=== PATIENT | male | born 1965 | race Two or more races ===

== ENCOUNTER 2025-08-01 11:52 | Inpatient (IN) | payer MEDICAID, OTHER ==
[~2025-08-01] VITALS: Ht 190.5 cm; Wt 163.3 kg
--- NOTE | 2025-08-01 12:18 | ED.PDOC ---
History of Present Illness HPI Comments This is a 60-year-old male who comes in with chief complaint of shortness for breath off and on for the past one month. The patient states that he has has a history of this five years ago. He denies any chest pain, nausea or vomiting. There has been no fever or chills. The patient also notes that he has been having some bilateral leg swelling and the shortness for breath seems to increase with ambulation. The patient has been other complaints at this time. Currently he states that he takes no medications for anything. Chief Complaint: Shortness of Breath Time Seen by MD: 12:01 Reviewed Notes: Nurses Notes, Medications, Allergies (No allergies to medications) Allergies: Coded Allergies: NO KNOWN ALLERGIES (Unverified , 08/01/25) Information Source: Patient Mode of Arrival: Ambulatory Severity: Moderate Timing: Weeks Duration: Since onset Prehospital treatment: None Associated signs and symptoms Exertional shortness for breath with the leg swelling Past Medical History PAST MEDICAL HISTORY: Denies Surgical History: Denies all surgeries Family History Family History: No family hx of Cancer, No family hx of DM, No family hx of Heart merritt Social History Smoker: Non-Smoker Alcohol: Denies ETOH Use Drugs: Denies Drug Use Lives In: Home Constitutional: denies: chills, diaphoresis, fatigue, fever, malaise, sweats, weakness, others EENTM: denies: blurred vision, double vision, ear bleeding, ear discharge, ear drainage, ear pain, ear ringing, eye pain, eye redness, hearing loss, mouth pain, mouth swelling, nasal discharge, nose bleeding, nose congestion, nose pain, photophobia, tearing, throat pain, throat swelling, voice changes, others Respiratory: reports: shortness of breath; denies: cough, hemoptysis, orthopnea, SOB at rest, SOB with excertion, stridor, wheezing, others Cardiovascular: denies: chest pain, dizzy spells, diaphoresis, Dyspnea on exertion, edema, irregular heart beat, left arm pain, lightheadedness, palpitations, PND, syncope, others Gastrointestinal: denies: abdomen distended, abdominal pain, blood streaked bowels, constipated, diarrhea, dysphagia, difficulty swallowing, hematemesis, melena, nausea, poor appetite, poor fluid intake, rectal bleeding, rectal pain, vomiting, others Genitourinary: denies: burning, dysuria, flank pain, frequency, hematuria, incontinence, penile discharge, penile sore, pain, testicle pain, testicle swelling, urgency, others Neurological: denies: dizziness, fainting, headache, left sided numbness, left sided weakness, numbness, paresthesia, pre-existing deficit, right sided numbness, right sided weakness, seizure, speech problems, tingling, tremors, weakness, others Musculoskeletal: reports: others (Bilateral leg swelling); denies: back pain, gout, joint pain, joint swelling, muscle pain, muscle stiffness, neck pain Integumetry: denies: bruises, change in color, change in hair/nails, dryness, laceration, lesions, lumps, rash, wounds, others Allergic/Immunocompromised: denies: Difficulty Healing, Frequent Infections, Hives, Itching, others Hematologic/Lymphatic: denies: anemia, blood clots, easy bleeding, easy bruising, swollen glands, others Endocrine: denies: excessive hunger, excessive sweating, excessive thirst, excessive urination, flushing, intolerance to cold, intolerance to heat, unexplained weight gain, unexplained weight loss, others Psychiatric: denies: anxiety, bipolar disorder, depression, hopeless, panic disorder, schizophrenia, sleepless, suicidal, others Physical Exam General Appearance: Moderate Distress, Obese HEENT: Normal ENT Inspection, Pharynx Normal, TMs Normal Neck: Full Range of Motion, Non-Tender, Normal, Normal Inspection Respiratory: Chest Non-Tender, No Accessory Muscle Use, Rales, Respiratory Distress Cardiovascular: No Edema, No JVD, No Murmur, No Gallop, Tachycardia Breast Exam: Deferred Gastrointestinal: No Organomegaly, Non Tender, No Pulsatile Mass, Normal Bowel Sounds, Soft Genitalia: Deferred Pelvic: Deferred Rectal: Deferred Extremities: No calf tenderness, Normal capillary refill, Pedal edema Musculoskeletal : Apperance: Normal Neurologic: Alert, 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 Was a procedure done?: No EKG EKG : Pulse Rate (adult): 118 [place]: Normal Cardiac Rhythm: Aflutter ST: Nonsp Differential Dx Considerations may include: ACS, IN, acute on chronic diastolic heart failure, asthma X-Ray, Labs, Meds, VS Vital Signs Date Time Temp Pulse Resp B/P (MAP) Pulse Ox O2 Delivery O2 Flow Rate FiO2 08/01/25 16:06 165/101 08/01/25 16:06 52 16 165/101 (122) 98 08/01/25 14:31 159/106 08/01/25 14:13 96 20 96 Room Air 08/01/25 14:13 98.0 96 20 159/108 (125) 96 98.0 08/01/25 12:18 118 08/01/25 12:02 118 08/01/25 11:53 97.7 108 15 156/106 95 97.7 Lab Test 08/01/25 17:16 08/01/25 15:31 08/01/25 14:03 08/01/25 13:16 Range/Units Troponin I High Sensitivity 26 21 20 </=54 ng/L Urine Color Light-yellow Yellow Urine Clarity Clear Clear Urine pH 6.0 5.0-9.0 Urine Specific [place] 1.010 1.001-1.035 Urine Protein Negative Negative Urine Ketones Negative Negative Urine Blood Negative Negative /uL Urine Nitrite Negative Negative Urine Bilirubin Negative Negative Urine Urobilinogen Normal Negative mg/dL Urine Leukocyte Esterase Negative Negative /uL Urine RBC 1 0 - 3 /hpf Urine Microscopic WBC < 1 0-3 /HPF Urine Squamous Epithelial Cells Few <5 /hpf Urine Bacteria None seen None Seen /hpf Urine Glucose Normal Normal mg/dL White Blood Count 7.2 4.4-10.8 10^3/uL Red Blood Count 5.03 4.5-5.90 10^6/uL Hemoglobin 15.1 13.5-17.5 g/dL Hematocrit 46.2 41.0-53.0 % Mean Corpuscular Volume 91.9 80.0-100.0 fL Mean Corpuscular Hemoglobin 30.0 28.0-32.0 pg Mean Corpuscular Hemoglobin Concent 32.6 32.0-36.0 g/dL Red Cell Distribution Width 15.0 H 11.8-14.3 % Platelet Count 138 L 140-450 10^3/uL Mean Platelet Volume 8.3 6.9-10.8 fL Neutrophils (%) (Auto) 65.3 37.0-80.0 % Lymphocytes (%) (Auto) 23.6 10.0-50.0 % Monocytes (%) (Auto) 7.8 0.0-12.0 % Eosinophils (%) (Auto) 2.5 0.0-7.0 % Basophils (%) (Auto) 0.8 0.0-2.0 % Neutrophils # (Auto) 4.7 1.6-8.6 10 ^3/uL Lymphocytes # (Auto) 1.7 0.4-5.4 10 ^3/uL Monocytes # (Auto) 0.6 0-1.3 10 ^3/uL Eosinophils # (Auto) 0.2 0-0.8 10 ^3/uL Basophils # (Auto) 0.1 0-0.2 10 ^3/uL Nucleated Red Blood Cells 0.0 % Sodium Level 144 136-145 mmol/L Potassium Level 4.3 3.5-5.1 mmol/L Chloride Level 106 98-107 mmol/L Carbon Dioxide Level 28 20-31 mmol/L Anion Gap 10 5-15 Blood Urea Nitrogen 20 9-23 mg/dL Creatinine 1.23 0.700-1.30 mg/dL Glomerular Filtration Rate Calc 66 >90 mL/min BUN/Creatinine Ratio 16.3 10.0-20.0 Serum Glucose 89 74-106 mg/dL Calcium Level 9.2 8.7-10.4 mg/dL B-Type Natriuretic Peptide 135.30 0-100 pg/mL Current Medications Medications (Trade) Dose Ordered Sig/Bautista Route Start Time Stop Time Status Last Admin Furosemide (Lasix Injection) 40 mg ONCE ONCE IV 08/01/25 12:15 08/01/25 12:16 DC 08/01/25 14:31 Hydralazine HCl (Apresoline Injection) 10 mg ONCE ONCE IV 08/01/25 12:30 08/01/25 12:31 DC 08/01/25 16:06 Acetaminophen (Tylenol Tablet) 650 mg ONCE ONCE PO 08/01/25 14:30 08/01/25 14:31 DC 08/01/25 14:28 IMPRESSION: Mild pulmonary vascular congestion. Hep-Lock has been established. The patient was given Lasix 40 mg IV push The patient is significantly hypertensive and will be given hydralazine 10 mg IV push The patient is being admitted with a diagnosis of acute on chronic diastolic heart failure The patient is also having accelerated hypertension The BNP is within normal range The chemistry panel is within normal range The patient's CBC is within normal range. The urine test is negative The troponin level is negative x2 Images Reviewed?: Images reviewed and evaluated by me Time of 1ST Reevaluation: 12:17 Reevaluation 1ST: Unchanged Patient Education/Counseling: Diagnosis, Treatment, Prognosis Family Education/Counseling: No Family Present SEPSIS Sepsis Screen Date sepsis recognized/suspect: Aug 01, 2025 Time Sepsis recognized/suspect: 1154 Recent Procedure: No On Antibiotic Therapy: No Respiratory Rate >20: No Heart Rate >90: Yes Temp<36 C (96.8 F) or >38.3 C: No SBP <90 or MAP <65 mmHG: No New Acute Mental Status Change: No Is the patient on CPAP, BIPAP,: No Physician Orders Heplock Iv (08/01/25 12:12) Pulse Oximetry (08/01/25 12:12) Hr Systems Analyst (08/01/25 12:12) Blood Pressure (08/01/25 12:12) Chest Two Views Routine (08/01/25 12:12) Electrocardigram (08/01/25 15:12) Vital Signs Date Time Temp Pulse Resp B/P (MAP) Pulse Ox O2 Delivery O2 Flow Rate FiO2 08/01/25 16:06 165/101 08/01/25 16:06 52 16 165/101 (122) 98 08/01/25 14:31 159/106 08/01/25 14:13 96 20 96 Room Air 08/01/25 14:13 98.0 96 20 159/108 (125) 96 98.0 08/01/25 12:18 118 08/01/25 12:02 118 08/01/25 11:53 97.7 108 15 156/106 95 97.7 Laboratory Tests Test 08/01/25 13:16 White Blood Count 7.2 10^3/uL (4.4-10.8) Medications Medications Dose Ordered Sig/Bautista Route Start Time Stop Time Status Last Admin Dose Admin Acetaminophen 650 mg ONCE ONCE PO 08/01/25 14:30 08/01/25 14:31 DC 08/01/25 14:28 Furosemide 40 mg ONCE ONCE IV 08/01/25 12:15 08/01/25 12:16 DC 08/01/25 14:31 Hydralazine HCl 10 mg ONCE ONCE IV 08/01/25 12:30 08/01/25 12:31 DC 08/01/25 16:06 Departure 1 Departure Time of Disposition: 18:34 Impression: Primary Impression: Acute on chronic diastolic heart failure Additional Impression: Accelerated hypertension Disposition: 09 ADMITTED INPATIENT Admit to: Tele Condition: Fair Critical Care Note Critical Care Time?: Yes (45 min-critical care time only) Stability Stability form required: Yes Unstable for transfer: Telemetry monitoring (Telemetry monitoring required), ED Physician Assesment (Clinical assesment) Heart Score Heart Score: Heart Score Response (Comments) Value History Moderate Suspicious 1 EKG Repolarization Disturb 1 Age 45-64 1 Risk Factors 1 or 2 risk factors 1 Troponin Normal limit 0 Total 4 I personally scribed for KERRY TAVARES MD ([email or web address]) on 08/01/25 at 18:05. Electronically submitted by Joon Evans ([email or web address]). KERRY TAVARES MD Aug 01, 2025 12:18
--- NOTE | 2025-08-01 12:47 | DVH ---
XY CHEST TWO VIEWS ROUTINE, HISTORY: sob COMPARISON: None None TECHNICAL DATA: 1 view of the chest was obtained. FINDINGS: Lines and tubes: None Cardiomediastinal silhouette: normal Pulmonary vasculature: Prominent Lung expansion: normal Lung airspace: normal Lung interstitium: normal Pleura: normal Pneumothorax: no Bones: Unremarkable Other: no IMPRESSION: Mild pulmonary vascular congestion.
[2025-08-01 13:37] LABS: Hematocrit 46.2 % (41.0-53.0); Hemoglobin 15.1 g/dL (13.5-17.5); Mean Corpuscular Hemoglobin 30.0 pg (28.0-32.0); Mean Corpuscular Volume 91.9 fL (80.0-100.0); Nucleated Red Blood Cells % 0.0 %
--- NOTE | 2025-08-01 13:49 | ECG ---
[facility] Test Date: 2025-08-01 Test Time: 12:02:17 Pat Name: LESVIA LOPEZ Department: ED Room: 0220 Gender: M Silk Examiner: MAXI : [id number] Requested By: KERRY TAVARES Order Number: [id number] Reading MD: Tristan Patel Measurements Intervals [place] Rate: 118 P: 0 [place]: 0 QRS: 45 QRSD: 94 T: 56 QT: 334 QTc: 469 Interpretive Statements Atrial flutter Nonspecific repol abnormality, lateral leads Electronically Signed On 08-06-2025 14:18:56 PDT by Tristan Patel Please click the below link to view image of tracing.
--- NOTE | 2025-08-01 13:50 | ECG ---
[facility] Test Date: 2025-08-01 Test Time: 12:45:30 Pat Name: LESVIA LOPEZ Department: ED Room: 0220 Gender: M Bulk Picker: MAXI : [id number] Requested By: KERRY TAVARES Order Number: [id number] Reading MD: Tristan Patel Measurements Intervals [place] Rate: 108 P: 64 ME: 129 QRS: 72 QRSD: 89 T: 31 QT: 331 QTc: 444 Interpretive Statements Sinus tachycardia Low voltage, precordial leads Baseline wander in lead(s) III,V3,V5 Electronically Signed On 08-06-2025 14:19:59 PDT by Tristan Patel Please click the below link to view image of tracing.
[2025-08-01 13:54] LABS: Chloride 106 mmol/L (98-107); Potassium 4.3 mmol/L (3.5-5.1); Sodium 144 mmol/L (136-145)
[2025-08-01 13:55] LABS: Anion Gap 10 (5-15); Calcium 9.2 mg/dL (8.7-10.4); Carbon Dioxide 28 mmol/L (20-31)
[2025-08-01 14:00] LABS: BUN/Creatinine Ratio 16.3 (10.0-20.0); Blood Urea Nitrogen 20 mg/dL (9-23); Glucose 89 mg/dL (74-106)
[2025-08-01] MEDS: ACETAMINOPHEN 325 MG TAB PO ONE (14:28)
[2025-08-01] MEDS: FUROSEMIDE 40 MG/4 ML VIAL IV ONE (14:31)
[2025-08-01 15:49] LABS: Urine Protein, UAD Negative (Negative)
[2025-08-01] MEDS: hydrALAZINE HCL 20 MG/ML VL IV ONE ×2 (16:06→22:22)
[2025-08-01] MEDS ORDERED: ALBUTEROL SULF 2.5 MG/0.5ML(0.5%) NEB SOLN NEB PRN (19:30)
[2025-08-01] MEDS ORDERED: ACETAMINOPHEN 325 MG TAB PO PRN (19:30)
[2025-08-01] MEDS ORDERED: ONDANSETRON HCL 4 MG/2 ML VIAL IV PRN (19:30)
[2025-08-01] MEDS ORDERED: TEMAZEPAM 15 MG CAP PO PRN (22:00)
--- NOTE | 2025-08-01 22:21 | DVHHP2 ---
History of Present Illness Reason for Visit: Shortness for breath History of Present Illness 60-year-old male presents for evaluation of shortness for breath. Patient reports a one month history of worsening shortness for breath with exertion and when lying down. He states over the past three days symptoms have become more constant. Denies chest pain or palpitations. No cough or fever. Patient does not have a primary care provider and has not seen one in a long time. Past Medical History Denies Past Surgical History Denies Family History Noncontributory Smoke: No ALCOHOL: none Drugs: None Lives: with Family Review of Systems Review of Systems Review of systems are currently negative otherwise addressed in HPI. Allergies: Coded Allergies: NO KNOWN ALLERGIES (Unverified , 08/01/25) Medications Current Medications Medications Dose Ordered Sig/Bautista Route Start Time Stop Time Status Last Admin Dose Admin Lisinopril 10 mg DAILY PO 08/02/25 10:00 Furosemide 40 mg DAILY PO 08/02/25 10:00 Albuterol 2.5 mg Q6HPRN PRN NEB 08/01/25 19:30 Temazepam 15 mg QHSP PRN PO 08/01/25 22:00 Ondansetron HCl 4 mg Q4HP PRN IV 08/01/25 19:30 Acetaminophen 650 mg Q6HP PRN PO 08/01/25 19:30 Hydralazine HCl 10 mg Q6HP PRN IV 08/01/25 22:15 UNV Aspirin 81 mg DAILY PO 08/02/25 10:00 UNV Exam Vital Signs Vital Signs Date Time Temp Pulse Resp B/P (MAP) Pulse Ox O2 Delivery O2 Flow Rate FiO2 08/01/25 22:10 176/102 (126) 08/01/25 18:59 97.6 84 18 96 97.6 08/01/25 14:13 Room Air Exam Gen: 60-year-old male in mild distress, morbidly obese Skin: Warm, dry, normal color and texture, no rash. HEENT: Normocephalic atraumatic, mucous membranes moist and pink. Neck: Cervical and supraclavicular nodes normal without enlargement, trachea is midline, thyroid gland is normal without masses. Pulmonary: Clear to auscultation and percussion bilaterally. Cardiac: Regular rate and rhythm. No murmur Abdomen: Soft, nontender, nondistended, bowel sounds present all 4 quadrants, no guarding, no rigidity, no organomegaly. Extremities: No cyanosis, clubbing, no edema Neuro: Cranial nerves II through XII grossly intact, normal affect and speech, no focal motor deficits. Labs/Xrays ORDERING PHYSICIAN: KERRY TAVARES MD PROCEDURE(s): CXR2 - CHEST TWO VIEWS ROUTINE REASON: sob ORDER NUMBER(s): [id number], ACCESSION NUMBER(s): [id number] XY CHEST TWO VIEWS ROUTINE, HISTORY: sob COMPARISON: None None TECHNICAL DATA: 1 view of the chest was obtained. FINDINGS: Lines and tubes: None Cardiomediastinal silhouette: normal Pulmonary vasculature: Prominent Lung expansion: normal Lung airspace: normal Lung interstitium: normal Pleura: normal Pneumothorax: no Bones: Unremarkable Other: no IMPRESSION: Mild pulmonary vascular congestion. Labs Test 08/01/25 17:16 08/01/25 15:31 08/01/25 13:16 Range/Units Troponin I High Sensitivity 26 </=54 ng/L Urine Color Light-yellow Yellow Urine Clarity Clear Clear Urine pH 6.0 5.0-9.0 Urine Specific [place] 1.010 1.001-1.035 Urine Protein Negative Negative Urine Ketones Negative Negative Urine Blood Negative Negative /uL Urine Nitrite Negative Negative Urine Bilirubin Negative Negative Urine Urobilinogen Normal Negative mg/dL Urine Leukocyte Esterase Negative Negative /uL Urine RBC 1 0 - 3 /hpf Urine Microscopic WBC < 1 0-3 /HPF Urine Squamous Epithelial Cells Few <5 /hpf Urine Bacteria None seen None Seen /hpf Urine Glucose Normal Normal mg/dL White Blood Count 7.2 4.4-10.8 10^3/uL Red Blood Count 5.03 4.5-5.90 10^6/uL Hemoglobin 15.1 13.5-17.5 g/dL Hematocrit 46.2 41.0-53.0 % Mean Corpuscular Volume 91.9 80.0-100.0 fL Mean Corpuscular Hemoglobin 30.0 28.0-32.0 pg Mean Corpuscular Hemoglobin Concent 32.6 32.0-36.0 g/dL Red Cell Distribution Width 15.0 H 11.8-14.3 % Platelet Count 138 L 140-450 10^3/uL Mean Platelet Volume 8.3 6.9-10.8 fL Neutrophils (%) (Auto) 65.3 37.0-80.0 % Lymphocytes (%) (Auto) 23.6 10.0-50.0 % Monocytes (%) (Auto) 7.8 0.0-12.0 % Eosinophils (%) (Auto) 2.5 0.0-7.0 % Basophils (%) (Auto) 0.8 0.0-2.0 % Neutrophils # (Auto) 4.7 1.6-8.6 10 ^3/uL Lymphocytes # (Auto) 1.7 0.4-5.4 10 ^3/uL Monocytes # (Auto) 0.6 0-1.3 10 ^3/uL Eosinophils # (Auto) 0.2 0-0.8 10 ^3/uL Basophils # (Auto) 0.1 0-0.2 10 ^3/uL Nucleated Red Blood Cells 0.0 % Sodium Level 144 136-145 mmol/L Potassium Level 4.3 3.5-5.1 mmol/L Chloride Level 106 98-107 mmol/L Carbon Dioxide Level 28 20-31 mmol/L Anion Gap 10 5-15 Blood Urea Nitrogen 20 9-23 mg/dL Creatinine 1.23 0.700-1.30 mg/dL Glomerular Filtration Rate Calc 66 >90 mL/min BUN/Creatinine Ratio 16.3 10.0-20.0 Serum Glucose 89 74-106 mg/dL Calcium Level 9.2 8.7-10.4 mg/dL B-Type Natriuretic Peptide 135.30 0-100 pg/mL SEPSIS Sepsis Screen Date sepsis recognized/suspect: Aug 01, 2025 Time Sepsis recognized/suspect: 1155 Recent Procedure: No On Antibiotic Therapy: No Respiratory Rate >20: No Heart Rate >90: Yes Temp<36 C (96.8 F) or >38.3 C: No SBP <90 or MAP <65 mmHG: No New Acute Mental Status Change: No Is the patient on CPAP, BIPAP,: No Physician Orders Lisinopril Tablet (Zestril Tablet) (08/02/25 10:00) Furosemide Tablet (Lasix Tablet) (08/02/25 10:00) * Cardiology Consult (08/01/25 19:30) Albuterol Medneb (Ventolin Medneb) (08/01/25 19:30) Basic Metabolic Panel (08/02/25 04:00) Admit (08/01/25 19:30) Temazepam (Restoril) (08/01/25 22:00) Ondansetron Hcl (Zofran) (08/01/25 19:30) Cardiac Diet-2gna,Lofat,Lochol (08/02/25 Breakfast) Echo 2d Mode Cardiac Dop (08/01/25 19:30) Condition: Stable (08/01/25 19:30) Acetaminophen Tablet (Tylenol Tablet) (08/01/25 19:30) Bedrest With Bathroom Privileg (08/01/25 19:30) Hydralazine Injection (Apresoline Inject (08/01/25 22:15) Aspirin Tablet (08/02/25 10:00) Atorvastatin (Lipitor) (08/02/25 22:00) Thyroid Stimulating Hormone (08/01/25 22:14) Lipid Panel (08/01/25 22:14) Vital Signs Date Time Temp Pulse Resp B/P (MAP) Pulse Ox O2 Delivery O2 Flow Rate FiO2 08/01/25 22:10 176/102 (126) 08/01/25 18:59 97.6 84 18 148/106 (120) 96 97.6 08/01/25 16:06 165/101 08/01/25 16:06 52 16 165/101 (122) 98 08/01/25 14:31 159/106 Laboratory Tests Test 08/01/25 13:16 White Blood Count 7.2 10^3/uL (4.4-10.8) Medications Medications Dose Ordered Sig/Bautista Route Start Time Stop Time Status Last Admin Dose Admin Acetaminophen 650 mg ONCE ONCE PO 08/01/25 14:30 08/01/25 14:31 DC 08/01/25 14:28 650 MG Furosemide 40 mg ONCE ONCE IV 08/01/25 12:15 08/01/25 12:16 DC 08/01/25 14:31 40 MG Hydralazine HCl 10 mg ONCE ONCE IV 08/01/25 12:30 08/01/25 12:31 DC 08/01/25 16:06 10 MG Assessment/Plan Assessment/Plan Assessment Acute diastolic heart failure Accelerated hypertension Plan Admit the patient to Med surge to the hospitalist Cardiology consultation Echocardiogram pending Continue treatment per orders. Plan discussed with: Patient My Orders Orders - PORTER MICHEL Procedure Category Date Status Time Lisinopril Tablet PHA 08/02/25 In Process (Zestril Tablet) 10:00 Furosemide Tablet PHA 08/02/25 In Process (Lasix Tablet) 10:00 * Cardiology Consult CONS 08/01/25 Transmitted 19:30 Albuterol Medneb PHA 08/01/25 In Process (Ventolin Medneb) 19:30 Basic Metabolic Panel LAB 08/02/25 Verified 04:00 Admit ADMIT 08/01/25 Transmitted 19:30 Temazepam (Restoril) PHA 08/01/25 In Process 22:00 Ondansetron Hcl PHA 08/01/25 In Process (Zofran) 19:30 Cardiac DIET 08/02/25 Transmitted Diet-2gna,Lofat,Lochol Breakfast Echo 2d Mode Cardiac US 08/01/25 Logged DOP 19:30 Condition: Stable DEVIN 08/01/25 In Process 19:30 Acetaminophen Tablet PHA 08/01/25 In Process (Tylenol Tablet) 19:30 Bedrest With Bathroom DEVIN 08/01/25 In Process Privileg 19:30 Hydralazine Injection PHA 08/01/25 Transmitted (Apresoline Inject 22:15 Aspirin Tablet PHA 08/02/25 Transmitted 10:00 Atorvastatin (Lipitor) PHA 08/02/25 Transmitted 22:00 Thyroid Stimulating LAB 08/01/25 Transmitted Hormone 22:14 Lipid Panel LAB 08/01/25 Transmitted 22:14 Date of Service: Aug 01, 2025 Billing Provider: PORTER MICHEL Common Visit Codes: [id number] INP/OBS CARE (HIGH) PORTER MICHEL Aug 01, 2025 22:21
[2025-08-01] MEDS: LISINOPRIL 5 MG TAB PO ONE (22:22)
[2025-08-01] MEDS: hydrALAZINE HCL 20 MG/ML VL ONE (22:25)
[2025-08-01 22:30] VITALS: BP 153/94; PULSE 78; RESP 20; TEMP 97.8; O2SAT 97
[2025-08-01 22:55] VITALS: BP 153/94; PULSE 78; RESP 20; TEMP 97.8; O2SAT 97
[2025-08-01 22:59] LABS: Triglycerides 102 mg/dL (< 150)
[2025-08-01 23:01] LABS: Cholesterol 192 mg/dL (< 200); HDL Cholesterol 51 mg/dL (40-59)
[2025-08-01 23:09] VITALS: BP 176/102; PULSE 84; RESP 18; TEMP 97.6; O2SAT 98
[2025-08-02] VITALS (14 sets, daily range): BP systolic 121–156; BP diastolic 76–106; PULSE 57–91; RESP 16–23; TEMP 97.7–98.4; O2SAT 94–99
[2025-08-02 07:22] LABS: Chloride 104 mmol/L (98-107); Potassium 4.0 mmol/L (3.5-5.1); Sodium 143 mmol/L (136-145)
[2025-08-02 07:23] LABS: Anion Gap 12 (5-15); Carbon Dioxide 27 mmol/L (20-31)
[2025-08-02 07:24] LABS: Calcium 9.6 mg/dL (8.7-10.4)
[2025-08-02 07:29] LABS: BUN/Creatinine Ratio 12.9 (10.0-20.0); Blood Urea Nitrogen 15 mg/dL (9-23); Glucose 93 mg/dL (74-106)
[2025-08-02] MEDS: FUROSEMIDE 40 MG TAB PO SCH (08:42)
[2025-08-02] MEDS: LISINOPRIL 5 MG TAB PO SCH (08:43)
[2025-08-02] MEDS: CARVEDILOL 3.125 MG TAB PO SCH (08:43)
--- NOTE | 2025-08-02 08:51 | DVHCONRES ---
Date Seen: Aug 02, 2025 Resident Creating Document: GERARDO HINKLE RESIDENT Referring Physician Jose Rafael GONZALEZ History of Present Illness 60-year-old male presented to the ER with a chief complaint of shortness of breaths on exertion for the past month. Patient reports he has been feeling short of breath, on exertion, not at rest, for the past month, and lower extremity swelling for similar duration. He sleeps with 2 pillows underneath his head and, sleeps at an angle, also reports paroxysmal nocturnal dyspnea. Denies cough or phlegm, sick contacts or recent travel history. Patient denies fever, chills, nausea, vomiting, abdominal or urinary symptoms. Patient does not have a primary care physician and does not take any medications. Cardiology consulted for possible CHF Past medical history: Hypertension Past surgical history: Denies Social history: Denies smoking/drinking/drug use, originally from [facility], lives in [place] with family Home medications: None PCP: None Patient seen and examined at bedside. Has bibasilar crackles and lower extremity pitting edema. Family History: Diabetes mellitus G8 MOTHER, Onset:Unknown Allergies: Coded Allergies: NO KNOWN ALLERGIES (Unverified , 08/01/25) Current Medications Current Medications Medications (Trade) Dose Ordered Sig/Bautista Route PRN Reason Start Time Stop Time Status Last Admin Lisinopril (Zestril Tablet) 10 mg DAILY PO 08/02/25 10:00 08/02/25 08:43 Furosemide (Lasix Tablet) 40 mg DAILY PO 08/02/25 10:00 08/02/25 08:42 Albuterol (Ventolin Medneb) 2.5 mg Q6HPRN PRN NEB SHORTNESS OF BREATH 08/01/25 19:30 Temazepam (Restoril) 15 mg QHSP PRN PO FOR INSOMNIA 08/01/25 22:00 Ondansetron HCl (Zofran) 4 mg Q4HP PRN IV NAUSEA / VOMITING 08/01/25 19:30 Acetaminophen (Tylenol Tablet) 650 mg Q6HP PRN PO PAIN SCALE 1-3 OR TEMP>100.4 08/01/25 19:30 Hydralazine HCl (Apresoline Injection) 10 mg Q6HP PRN IV SBP>150 08/01/25 22:15 Aspirin 81 mg DAILY PO 08/02/25 10:00 08/02/25 08:42 Atorvastatin Calcium (Lipitor) 10 mg HS PO 08/02/25 22:00 Carvedilol (Coreg Tablet) 3.125 mg Q12HR PO 08/02/25 10:00 08/02/25 08:43 Review of Systems Eyes: No Pain, No Vision change, No Conjunctivae inflammation, No Eyelid inflammation, No Other, No Redness ENT: No Ear pain, No Ear discharge, No Nose pain, No Nose discharge, No Nose congestion, No Mouth pain, No Mouth swelling, No Throat pain, No Throat swelling, No Other Cardiovascular: No Chest Pain, No Palpitations, No Orthopnea, No PND, No Edema, No Lt Headedness, No Other Respiratory: No Cough, No Dry, reports shortness of breaths on exertion, No Wheezing, No Hemoptysis, No Pleuritic Pain, No Sputum, No Other Gastrointestinal: No Nausea, No Vomiting, No Abdominal Pain, No Diarrhea, No Constipation, No Melena, No Hematochezia, No Other Genitourinary: No Dysuria, No Frequency, No Incontinence, No Hematuria, No Retention, No Other Musculoskeletal: No other, No neck pain, No shoulder pain, No arm pain, No back pain, No hand pain, No leg pain, No foot pain Skin: No Rash, No Lesions, No Jaundice, No Bruising, No Other Vital Signs Vital Signs Date Time Temp Pulse Resp B/P (MAP) Pulse Ox O2 Delivery O2 Flow Rate FiO2 08/02/25 08:43 91 136/80 08/02/25 07:09 98 Nasal Cannula* 1 24 08/02/25 05:00 97.9 19 97.9 Physical Exam Patient lying in bed, in no acute distress General: Morbidly obese, afebrile, palor, mucosae are moist Cardiovascular: Regular S1 and S2. No murmurs, gallops or rubs. No JVD elevation. 2+ pitting edema bilaterally Respiratory: Decreased breath sounds, bibasilar crackles heard on auscultation. On NC supplementation Abdomen: Soft, nontender, nondistended, normoactive bowel sounds, no rebound tenderness, no organomegaly, no masses Genitourinary: Deferred MSK/skin: Mobilizes 4 limbs. Skin is dry and warm Neurological: No motor, no sensitive deficits, normal speech. Pupils are isocoric and reactive. Psych/Mental Status: A/Ox3 Labs/Diagnostic Data Labs Test 08/02/25 06:32 08/01/25 17:16 08/01/25 15:31 08/01/25 14:03 Range/Units Sodium Level 143 136-145 mmol/L Potassium Level 4.0 3.5-5.1 mmol/L Chloride Level 104 98-107 mmol/L Carbon Dioxide Level 27 20-31 mmol/L Anion Gap 12 5-15 Blood Urea Nitrogen 15 9-23 mg/dL Creatinine 1.16 0.700-1.30 mg/dL Glomerular Filtration Rate Calc 71 >90 mL/min BUN/Creatinine Ratio 12.9 10.0-20.0 Serum Glucose 93 74-106 mg/dL Calcium Level 9.6 8.7-10.4 mg/dL Troponin I High Sensitivity 26 </=54 ng/L Triglycerides Level 102 < 150 mg/dL Cholesterol Level 192 < 200 mg/dL LDL Cholesterol 133 H < 100 mg/dL HDL Cholesterol 51 40-59 mg/dL Urine Color Light-yellow Yellow Urine Clarity Clear Clear Urine pH 6.0 5.0-9.0 Urine Specific [place] 1.010 1.001-1.035 Urine Protein Negative Negative Urine Ketones Negative Negative Urine Blood Negative Negative /uL Urine Nitrite Negative Negative Urine Bilirubin Negative Negative Urine Urobilinogen Normal Negative mg/dL Urine Leukocyte Esterase Negative Negative /uL Urine RBC 1 0 - 3 /hpf Urine Microscopic WBC < 1 0-3 /HPF Urine Squamous Epithelial Cells Few <5 /hpf Urine Bacteria None seen None Seen /hpf Urine Glucose Normal Normal mg/dL Thyroid Stimulating Hormone (TSH) 0.82 0.55-4.78 uIU/mL Test 08/01/25 13:16 Range/Units White Blood Count 7.2 4.4-10.8 10^3/uL Red Blood Count 5.03 4.5-5.90 10^6/uL Hemoglobin 15.1 13.5-17.5 g/dL Hematocrit 46.2 41.0-53.0 % Mean Corpuscular Volume 91.9 80.0-100.0 fL Mean Corpuscular Hemoglobin 30.0 28.0-32.0 pg Mean Corpuscular Hemoglobin Concent 32.6 32.0-36.0 g/dL Red Cell Distribution Width 15.0 H 11.8-14.3 % Platelet Count 138 L 140-450 10^3/uL Mean Platelet Volume 8.3 6.9-10.8 fL Neutrophils (%) (Auto) 65.3 37.0-80.0 % Lymphocytes (%) (Auto) 23.6 10.0-50.0 % Monocytes (%) (Auto) 7.8 0.0-12.0 % Eosinophils (%) (Auto) 2.5 0.0-7.0 % Basophils (%) (Auto) 0.8 0.0-2.0 % Neutrophils # (Auto) 4.7 1.6-8.6 10 ^3/uL Lymphocytes # (Auto) 1.7 0.4-5.4 10 ^3/uL Monocytes # (Auto) 0.6 0-1.3 10 ^3/uL Eosinophils # (Auto) 0.2 0-0.8 10 ^3/uL Basophils # (Auto) 0.1 0-0.2 10 ^3/uL Nucleated Red Blood Cells 0.0 % B-Type Natriuretic Peptide 135.30 0-100 pg/mL Assessment Shortness of breadth likely congestive heart failure-NYHA class 3-EF unknown Accelerated hypertension Noncompliance Morbid obesity Plan/Recommendation BNP 135, could be falsely negative Troponins unremarkable Chest x-ray shows pulmonary congestion EKG on arrival shows sinus tachycardia Plan: Given the clinical and laboratory findings, patient has a started on Lasix 40 mg IV b.i.d., strict I&Os, fluid restriction and cardiac diet Follow up with the echocardiogram Continue lisinopril 10 mg for adequate blood pressure control 10 year ASCVD 14.7%, atorvastatin 40 mg HS daily Counseled regarding healthy lifestyle and weight loss Recommend CPAP overnight We will continue to follow up Thank you for consulting Cardiology Plan discussed with patient in which all questions have been answered Case discussed with Dr. Patel Plan discussed with: Patient Visit Coding Cardiology RES Date of Service: Aug 02, 2025 Billing Provider: YUMIKO PATEL Sr., MD Cardiology Common Codes: CONSULT ONLY GERARDO HINKLE RESIDENT Aug 02, 2025 08:51
[2025-08-02 09:19] LABS: INR 1.14 (0.9-1.15); Partial Thromboplastin Time 30.9 SEC (24.5-34.5); Prothrombin Time 11.9 sec (9.3-11.8)
[2025-08-02] MEDS: IPRATROPIUM BROM 0.5 MG/2.5ML INH SOL NEB SCH (12:11)
[2025-08-02] MEDS: LEVALBUTEROL HCL 1.25 MG/3 ML NEB NEB SCH (12:11)
--- NOTE | 2025-08-02 12:54 | DVHPN2 ---
Reviewed: Care Plan, H&P, Labs, Medications, Previous Orders, Radiology Changes from previous H/P or p: No Changes Objective Vitals Vital Signs Date Time Temp Pulse Resp B/P (MAP) Pulse Ox O2 Delivery O2 Flow Rate FiO2 08/02/25 12:19 78 16 99 08/02/25 12:11 Nasal Cannula* 1 24 08/02/25 09:02 97.7 138/93 (108) 97.7 Intake/Output Intake and Output 08/02/25 07:00 Intake Total 300 ml Output Total 0 ml Balance 300 ml Intake Oral 300 ml Output Urine Total 0 ml Medications Current Medications Medications Dose Ordered Sig/Bautista Route Start Time Stop Time Status Last Admin Dose Admin Lisinopril 10 mg DAILY PO 08/02/25 10:00 08/02/25 08:43 10 MG Temazepam 15 mg QHSP PRN PO 08/01/25 22:00 Ondansetron HCl 4 mg Q4HP PRN IV 08/01/25 19:30 Acetaminophen 650 mg Q6HP PRN PO 08/01/25 19:30 Hydralazine HCl 10 mg Q6HP PRN IV 08/01/25 22:15 Aspirin 81 mg DAILY PO 08/02/25 10:00 08/02/25 08:42 81 MG Carvedilol 3.125 mg Q12HR PO 08/02/25 10:00 08/02/25 08:43 3.125 MG Furosemide 40 mg BIDD IV 08/02/25 18:00 Atorvastatin Calcium 40 mg HS PO 08/02/25 22:00 Levalbuterol HCl 0.625 mg Q6HR NEB 08/02/25 12:00 08/02/25 12:11 0.625 MG Ipratropium [place] 0.5 mg Q6HR NEB 08/02/25 12:00 08/02/25 12:11 0.5 MG Laboratory Results Laboratory Tests 08/01/25 13:16 08/02/25 06:32 Chemistry Test 08/01/25 13:16 08/02/25 06:32 Calcium Level 9.2 mg/dL (8.7-10.4) 9.6 mg/dL (8.7-10.4) Magnesium Level 2.3 mg/dL (1.6-2.6) Coagulation Test 08/02/25 06:32 Prothrombin Time 11.9 sec (9.3-11.8) H Prothrombin Time INR 1.14 (0.9-1.15) Activated Partial Thromboplast Time 30.9 SEC (24.5-34.5) Lipid panel Test 08/01/25 17:16 Cholesterol Level 192 mg/dL (< 200) HDL Cholesterol 51 mg/dL (40-59) Triglycerides Level 102 mg/dL (< 150) Cardiac Markers Test 08/01/25 13:16 B-Type Natriuretic Peptide 135.30 pg/mL (0-100) HgA1c, TSH Test 08/01/25 14:03 08/02/25 06:32 Thyroid Stimulating Hormone (TSH) 0.82 uIU/mL (0.55-4.78) Hemoglobin A1c 5.6 % A1C (<5.7) Urinalysis Test 08/01/25 15:31 Urine Color Light-yellow (Yellow) Urine Clarity Clear (Clear) Urine pH 6.0 (5.0-9.0) Urine Specific [place] 1.010 (1.001-1.035) Urine Protein Negative (Negative) Urine Ketones Negative (Negative) Urine Blood Negative /uL (Negative) Urine Nitrite Negative (Negative) Urine Bilirubin Negative (Negative) Urine Urobilinogen Normal mg/dL (Negative) Urine Leukocyte Esterase Negative /uL (Negative) Urine RBC 1 /hpf (0 - 3) Urine Microscopic WBC < 1 /HPF (0-3) Urine Squamous Epithelial Cells Few /hpf (<5) Urine Bacteria None seen /hpf (None Seen) Urine Glucose Normal mg/dL (Normal) Labs and/or images reviewed: Labs reviewed by me, Image(s) reviewed by me Assessment/Plan Assessment/Plan Shortness of breadt likely congestive heart failure-NYHA class 3-EF unknown Lasix cardiology consult by Dr. Patel appreciated Accelerated hypertension Noncompliance Morbid obesity Time Spent 25 minutes Advanced care planning time 20 mts Patient is full code Plan discussed with: Patient Date of Service: Aug 02, 2025 Billing Provider: SILAS GIBBONS MD Common Visit Codes: [id number] INP/OBS CARE(HIGH) Secondary Visit Codes: [id number] CARE PLAN 30 MINUTES SILAS GIBBONS MD Aug 02, 2025 12:54
[2025-08-02] MEDS: hydrALAZINE HCL 20 MG/ML VL IV PRN (18:18)
[2025-08-02] MEDS: FUROSEMIDE 40 MG/4 ML VIAL IV SCH (18:18)
[2025-08-02] MEDS: ATORVASTATIN 20 MG TAB PO SCH (21:35)
[2025-08-02] MEDS ORDERED: ATORVASTATIN 20 MG TAB PO SCH (22:00)
[2025-08-03] VITALS (13 sets, daily range): BP systolic 106–133; BP diastolic 71–86; PULSE 52–98; RESP 12–20; TEMP 97.5–98.2; O2SAT 94–98
--- NOTE | 2025-08-03 09:12 | DVHPN2 ---
Reviewed: Care Plan, H&P, Labs, Medications, Previous Orders, Radiology Changes from previous H/P or p: No Changes Objective Vitals Vital Signs Date Time Temp Pulse Resp B/P (MAP) Pulse Ox O2 Delivery O2 Flow Rate FiO2 08/03/25 07:06 64 16 98 08/03/25 06:58 Room Air* 0 21 08/03/25 05:47 126/86 08/03/25 05:00 98.0 98.0 Intake/Output Intake and Output 08/03/25 07:00 Intake Total 1898 ml Output Total 1400 ml Balance 498 ml Intake Oral 1898 ml Output Urine Total 1400 ml # Voids 2 Medications Current Medications Medications Dose Ordered Sig/Bautista Route Start Time Stop Time Status Last Admin Dose Admin Lisinopril 10 mg DAILY PO 08/02/25 10:00 08/02/25 08:43 10 MG Temazepam 15 mg QHSP PRN PO 08/01/25 22:00 Ondansetron HCl 4 mg Q4HP PRN IV 08/01/25 19:30 Acetaminophen 650 mg Q6HP PRN PO 08/01/25 19:30 Hydralazine HCl 10 mg Q6HP PRN IV 08/01/25 22:15 08/02/25 18:18 10 MG Aspirin 81 mg DAILY PO 08/02/25 10:00 08/02/25 08:42 81 MG Carvedilol 3.125 mg Q12HR PO 08/02/25 10:00 08/02/25 21:34 3.125 MG Furosemide 40 mg BIDD IV 08/02/25 18:00 08/03/25 05:47 40 MG Atorvastatin Calcium 40 mg HS PO 08/02/25 22:00 08/02/25 21:35 40 MG Levalbuterol HCl 0.625 mg Q6HR NEB 08/02/25 12:00 08/03/25 06:58 0.625 MG Ipratropium [place] 0.5 mg Q6HR NEB 08/02/25 12:00 08/03/25 06:58 0.5 MG Laboratory Results Laboratory Tests 08/01/25 13:16 08/02/25 06:32 Urinalysis Test 08/01/25 15:31 Urine Color Light-yellow (Yellow) Urine Clarity Clear (Clear) Urine pH 6.0 (5.0-9.0) Urine Specific [place] 1.010 (1.001-1.035) Urine Protein Negative (Negative) Urine Ketones Negative (Negative) Urine Blood Negative /uL (Negative) Urine Nitrite Negative (Negative) Urine Bilirubin Negative (Negative) Urine Urobilinogen Normal mg/dL (Negative) Urine Leukocyte Esterase Negative /uL (Negative) Urine RBC 1 /hpf (0 - 3) Urine Microscopic WBC < 1 /HPF (0-3) Urine Squamous Epithelial Cells Few /hpf (<5) Urine Bacteria None seen /hpf (None Seen) Urine Glucose Normal mg/dL (Normal) Labs and/or images reviewed: Labs reviewed by me, Image(s) reviewed by me Assessment/Plan Assessment/Plan Acute hypoxic respiratory failure: Oxygen by nasal cannula Acute systolic CHF exacerbation: Cardiology consult by Dr. Jorge archer, Marleny Interiano Accelerated hypertension : Lisinopril Noncompliance Morbid obesity Time Spent 45 minutes Advanced care planning time 20 mts Patient is full code Echocardiogram result pending Plan discussed with: Patient Date of Service: Aug 03, 2025 Billing Provider: SILAS GIBBONS MD Common Visit Codes: [id number] INP/OBS CARE(HIGH) SILAS GIBBONS MD Aug 03, 2025 09:12
[2025-08-03 11:43] LABS: Calcium 9.7 mg/dL (8.7-10.4); Chloride 104 mmol/L (98-107); Potassium 3.6 mmol/L (3.5-5.1); Sodium 142 mmol/L (136-145)
[2025-08-03 11:44] LABS: Anion Gap 11 (5-15); Carbon Dioxide 27 mmol/L (20-31)
[2025-08-03 11:49] LABS: BUN/Creatinine Ratio 13.2 (10.0-20.0); Blood Urea Nitrogen 18 mg/dL (9-23); Glucose 84 mg/dL (74-106)
[2025-08-03 11:50] LABS: Magnesium 2.3 mg/dL (1.6-2.6)
[2025-08-03 12:02] LABS: Hepatitis B Surface Antigen Negative (Negative); Hepatitis C Antibody Negative (Negative)
--- NOTE | 2025-08-03 12:20 | DVHPN2 ---
Progress Note Date Seen: Aug 03, 2025 Resident Creating Document: EGRARDO HINKLE RESIDENT Medical Necessity Reason Pt with a Central, PICC or Fol: No Subjective Review of Systems 60-year-old male presented to the ER with a chief complaint of shortness of breaths on exertion for the past month. Patient reports he has been feeling short of breath, on exertion, not at rest, for the past month, and lower extremity swelling for similar duration. He sleeps with 2 pillows underneath his head and, sleeps at an angle, also reports paroxysmal nocturnal dyspnea. Denies cough or phlegm, sick contacts or recent travel history. Patient denies fever, chills, nausea, vomiting, abdominal or urinary symptoms. Patient does not have a primary care physician and does not take any medications. Cardiology consulted for possible CHF Past medical history: Hypertension Past surgical history: Denies Social history: Denies smoking/drinking/drug use, originally from [facility], lives in [place] with family Home medications: None PCP: None 08/02-Patient seen and examined at bedside. Has bibasilar crackles and lower extremity pitting edema. 08/03-patient reports feeling better, on room air, lower extremity swelling going down. Echo pending Objective vital signs Vital Sign Date Time Temp Pulse Resp B/P (MAP) Pulse Ox O2 Delivery O2 Flow Rate FiO2 08/03/25 09:32 124/87 08/03/25 09:28 75 08/03/25 07:06 16 98 08/03/25 06:58 Room Air* 0 21 08/03/25 05:00 98.0 98.0 Total Intake and Output 08/02/25 08/02/25 08/03/25 15:00 23:00 07:00 Intake Total 1398 ml 500 ml Output Total 400 ml 1000 ml Balance 998 ml -500 ml medications Current Medications Medications Dose Ordered Sig/Bautista Route Start Time Stop Time Status Last Admin Dose Admin Lisinopril 10 mg DAILY PO 08/02/25 10:00 08/03/25 09:32 10 MG Temazepam 15 mg QHSP PRN PO 08/01/25 22:00 Ondansetron HCl 4 mg Q4HP PRN IV 08/01/25 19:30 Acetaminophen 650 mg Q6HP PRN PO 08/01/25 19:30 Hydralazine HCl 10 mg Q6HP PRN IV 08/01/25 22:15 08/02/25 18:18 10 MG Aspirin 81 mg DAILY PO 08/02/25 10:00 08/03/25 09:28 81 MG Carvedilol 3.125 mg Q12HR PO 08/02/25 10:00 08/03/25 09:28 3.125 MG Furosemide 40 mg BIDD IV 08/02/25 18:00 08/03/25 05:47 40 MG Atorvastatin Calcium 40 mg HS PO 08/02/25 22:00 08/02/25 21:35 40 MG Levalbuterol HCl 0.625 mg Q6HR NEB 08/02/25 12:00 08/03/25 12:03 0.625 MG Ipratropium [place] 0.5 mg Q6HR NEB 08/02/25 12:00 08/03/25 12:03 0.5 MG Examination Patient lying in bed, in no acute distress General: Morbidly obese, afebrile, palor, mucosae are moist Cardiovascular: Regular S1 and S2. No murmurs, gallops or rubs. No JVD elevation. 2+ pitting edema bilaterally Respiratory: Decreased breath sounds, bibasilar crackles heard on auscultation. On NC supplementation Abdomen: Soft, nontender, nondistended, normoactive bowel sounds, no rebound tenderness, no organomegaly, no masses Genitourinary: Deferred MSK/skin: Mobilizes 4 limbs. Skin is dry and warm Neurological: No motor, no sensitive deficits, normal speech. Pupils are isocoric and reactive. Psych/Mental Status: A/Ox3 laboratory and microbiology Laboratory Tests 08/03/25 11:10 08/01/25 13:16 Test 08/03/25 11:10 Range/Units Serum Glucose 84 74-106 mg/dL Labs and/or images reviewed: Labs reviewed by me, Image(s) reviewed by me Problem List/Assessment/Plan Problem List/Assessment/Plan Shortness of breadth likely congestive heart failure-NYHA class 3-EF unknown Accelerated hypertension Noncompliance Morbid obesity Dyslipidemia Plan/Recommendation BNP 135, could be falsely negative Troponins unremarkable Chest x-ray shows pulmonary congestion EKG on arrival shows sinus tachycardia Plan: Patient reports feeling better, lower extremity swelling resolving Given the increase in creatinine, Lasix IV 40 switched to Lasix 40 p.o. daily. Continue strict I&Os, fluid restriction and cardiac diet Follow up with the echocardiogram Continue lisinopril 10 mg for adequate blood pressure control 10 year ASCVD 14.7%, atorvastatin 40 mg HS daily Counseled regarding healthy lifestyle and weight loss Recommend CPAP overnight We will continue to follow up Thank you for consulting Cardiology Plan discussed with patient in which all questions have been answered Case discussed with Dr. Patel Plan discussed with: Patient Visit Coding Cardiology RES Date of Service: Aug 03, 2025 Billing Provider: YUMIKO PATEL Sr., MD Cardiology Common Codes: [id number] [facility](GERARDO Kelley RESIDENT Aug 03, 2025 12:20
[2025-08-04] VITALS (11 sets, daily range): BP systolic 108–137; BP diastolic 84–104; PULSE 57–86; RESP 17–20; TEMP 97.2–98.6; O2SAT 94–100
--- NOTE | 2025-08-04 09:14 | DVHPN2 ---
Reviewed: Care Plan, H&P, Labs, Medications, Previous Orders, Radiology Changes from previous H/P or p: No Changes Objective Vitals Vital Signs Date Time Temp Pulse Resp B/P (MAP) Pulse Ox O2 Delivery O2 Flow Rate FiO2 08/04/25 06:02 65 20 100 08/04/25 05:55 Room Air 0.0 08/04/25 05:55 21 21 08/04/25 05:00 97.2 108/91 (97) 97.2 Intake/Output Intake and Output 08/04/25 07:00 Intake Total 1450 ml Output Total 700 ml Balance 750 ml Intake Oral 1450 ml Output Urine Total 700 ml # Bowel Movements 1 Medications Current Medications Medications Dose Ordered Sig/Bautista Route Start Time Stop Time Status Last Admin Dose Admin Lisinopril 10 mg DAILY PO 08/02/25 10:00 08/03/25 09:32 10 MG Temazepam 15 mg QHSP PRN PO 08/01/25 22:00 Ondansetron HCl 4 mg Q4HP PRN IV 08/01/25 19:30 Acetaminophen 650 mg Q6HP PRN PO 08/01/25 19:30 Hydralazine HCl 10 mg Q6HP PRN IV 08/01/25 22:15 08/02/25 18:18 10 MG Aspirin 81 mg DAILY PO 08/02/25 10:00 08/03/25 09:28 81 MG Carvedilol 3.125 mg Q12HR PO 08/02/25 10:00 08/03/25 21:27 3.125 MG Atorvastatin Calcium 40 mg HS PO 08/02/25 22:00 08/03/25 21:27 40 MG Levalbuterol HCl 0.625 mg Q6HR NEB 08/02/25 12:00 08/04/25 05:56 0.625 MG Ipratropium [place] 0.5 mg Q6HR NEB 08/02/25 12:00 08/04/25 05:55 0.5 MG Furosemide 40 mg DAILY PO 08/04/25 10:00 UNV Furosemide 40 mg DAILY PO 08/04/25 10:00 Laboratory Results Laboratory Tests 08/01/25 13:16 08/03/25 11:10 Chemistry Test 08/03/25 11:10 Calcium Level 9.7 mg/dL (8.7-10.4) Magnesium Level 2.3 mg/dL (1.6-2.6) Urinalysis Test 08/01/25 15:31 Urine Color Light-yellow (Yellow) Urine Clarity Clear (Clear) Urine pH 6.0 (5.0-9.0) Urine Specific [place] 1.010 (1.001-1.035) Urine Protein Negative (Negative) Urine Ketones Negative (Negative) Urine Blood Negative /uL (Negative) Urine Nitrite Negative (Negative) Urine Bilirubin Negative (Negative) Urine Urobilinogen Normal mg/dL (Negative) Urine Leukocyte Esterase Negative /uL (Negative) Urine RBC 1 /hpf (0 - 3) Urine Microscopic WBC < 1 /HPF (0-3) Urine Squamous Epithelial Cells Few /hpf (<5) Urine Bacteria None seen /hpf (None Seen) Urine Glucose Normal mg/dL (Normal) Microbiology Microbiology Date/Time Source Procedure Growth Status 08/02/25 11:40 Nose MRSA Screen - Final Complete Labs and/or images reviewed: Labs reviewed by me, Image(s) reviewed by me Assessment/Plan Assessment/Plan Acute hypoxic respiratory failure: Oxygen by nasal cannula Acute systolic CHF exacerbation: Cardiology consult by Dr. Jorge archer, Lasix Coreg Accelerated hypertension : Lisinopril Noncompliance , patient does not see any doctors and not taking any medications at home Morbid obesity Time Spent 45 minutes Advanced care planning time 20 mts Patient is full code Echocardiogram result pending Patient is requesting to be discharged home today and does not want to wait for echo result Plan discussed with: Patient Date of Service: Aug 04, 2025 Billing Provider: SILAS GIBBONS MD Common Visit Codes: [id number] INP/OBS CARE(HIGH) SILAS GIBBONS MD Aug 04, 2025 09:14
--- NOTE | 2025-08-04 09:18 | DVHDS2 ---
Discharge Summary Date of Admission Aug 01, 2025 at 19:30 Date of Discharge: Aug 04, 2025 Admitting Diagnosis Shortness of breath Wounds: None Labs/Diagnostic Data: Laboratory Results Test 08/03/25 11:10 08/02/25 11:40 08/02/25 06:32 08/01/25 17:16 Sodium Level 142 mmol/L (136-145) Potassium Level 3.6 mmol/L (3.5-5.1) Chloride Level 104 mmol/L (98-107) Carbon Dioxide Level 27 mmol/L (20-31) Anion Gap 11 (5-15) Blood Urea Nitrogen 18 mg/dL (9-23) Creatinine 1.36 mg/dL (0.700-1.30) Glomerular Filtration Rate Calc 59 mL/min (>90) BUN/Creatinine Ratio 13.2 (10.0-20.0) Serum Glucose 84 mg/dL (74-106) Calcium Level 9.7 mg/dL (8.7-10.4) Magnesium Level 2.3 mg/dL (1.6-2.6) Influenza Type A Antigen Negative (Negative) Influenza Type B Antigen Negative (Negative) Prothrombin Time 11.9 sec (9.3-11.8) Prothrombin Time INR 1.14 (0.9-1.15) Activated Partial Thromboplast Time 30.9 SEC (24.5-34.5) Hemoglobin A1c 5.6 % A1C (<5.7) Hepatitis B Surface Antigen Negative (Negative) Hepatitis C Antibody Negative (Negative) Troponin I High Sensitivity 26 ng/L (</=54) Triglycerides Level 102 mg/dL (< 150) Cholesterol Level 192 mg/dL (< 200) LDL Cholesterol 133 mg/dL (< 100) HDL Cholesterol 51 mg/dL (40-59) Test 08/01/25 15:31 08/01/25 14:03 08/01/25 13:16 Urine Color Light-yellow (Yellow) Urine Clarity Clear (Clear) Urine pH 6.0 (5.0-9.0) Urine Specific [place] 1.010 (1.001-1.035) Urine Protein Negative (Negative) Urine Ketones Negative (Negative) Urine Blood Negative /uL (Negative) Urine Nitrite Negative (Negative) Urine Bilirubin Negative (Negative) Urine Urobilinogen Normal mg/dL (Negative) Urine Leukocyte Esterase Negative /uL (Negative) Urine RBC 1 /hpf (0 - 3) Urine Microscopic WBC < 1 /HPF (0-3) Urine Squamous Epithelial Cells Few /hpf (<5) Urine Bacteria None seen /hpf (None Seen) Urine Glucose Normal mg/dL (Normal) Thyroid Stimulating Hormone (TSH) 0.82 uIU/mL (0.55-4.78) White Blood Count 7.2 10^3/uL (4.4-10.8) Red Blood Count 5.03 10^6/uL (4.5-5.90) Hemoglobin 15.1 g/dL (13.5-17.5) Hematocrit 46.2 % (41.0-53.0) Mean Corpuscular Volume 91.9 fL (80.0-100.0) Mean Corpuscular Hemoglobin 30.0 pg (28.0-32.0) Mean Corpuscular Hemoglobin Concent 32.6 g/dL (32.0-36.0) Red Cell Distribution Width 15.0 % (11.8-14.3) Platelet Count 138 10^3/uL (140-450) Mean Platelet Volume 8.3 fL (6.9-10.8) Neutrophils (%) (Auto) 65.3 % (37.0-80.0) Lymphocytes (%) (Auto) 23.6 % (10.0-50.0) Monocytes (%) (Auto) 7.8 % (0.0-12.0) Eosinophils (%) (Auto) 2.5 % (0.0-7.0) Basophils (%) (Auto) 0.8 % (0.0-2.0) Neutrophils # (Auto) 4.7 10 ^3/uL (1.6-8.6) Lymphocytes # (Auto) 1.7 10 ^3/uL (0.4-5.4) Monocytes # (Auto) 0.6 10 ^3/uL (0-1.3) Eosinophils # (Auto) 0.2 10 ^3/uL (0-0.8) Basophils # (Auto) 0.1 10 ^3/uL (0-0.2) Nucleated Red Blood Cells 0.0 % B-Type Natriuretic Peptide 135.30 pg/mL (0-100) Other Laboratory Tests 08/03/25 11:10 08/01/25 13:16 Brief Hx & Hospital Course: 60-year-old male noncompliant never seen a Dr not using any medications came in for shortness of breaths found to have acute systolic CHF exacerbation cardiology consult by Dr. Parikh placed on Lasix Coreg lisinopril. Echo result pending patient feels better and wants to go home and does not want to wait for the echo result prescriptions transmitted to the pharmacy with a advised to follow up with the discharge clinic in one week as he has no primary Dr Consults/Reason for consult Cardiology Dr. Patel Operations or Procedures Echocardiogram result pending but patient wants to go home Condition at Discharge: Fair Final Diagnosis/Problems List Acute hypoxic respiratory failure: Oxygen by nasal cannula Acute systolic CHF exacerbation: Cardiology consult by Dr. Jorge archer, Lasix Coreg Accelerated hypertension : Lisinopril Noncompliance , patient does not see any doctors and not taking any medications at home Morbid obesity Discharge Disposition: Home Discharge Instruct/Medications Diet: Cardiac 2g Na,low cholest Activity: Light activity Follow Up/Referral: Fill prescription today and start taking medications regularly Follow up with discharge clinic in one week Medications: Sent to the pharmacy 45 (Time taken for discharge summary 45 minutes) Discharge Statement: "Patient was advised to return to the ER or call 911 if any headaches, dizziness, shortness of breath, chest pain, abdominal pain, bleeding, fevers, or worsening of medical condition. Patient was counseled about treatment plan, medications, possible side effects, patientverbalized understanding. All questions were answered to the best of my ability. This discharge took greater then 30 minutes in planning, reviewing documentation, counseling the patient, and discussing with other team members." ASSESSMENT ASSESSMENT Hospital Course Uneventful Assessment Acute hypoxic respiratory failure: Oxygen by nasal cannula Acute systolic CHF exacerbation: Cardiology consult by Dr. Jorge archer, Lasix Coreg Accelerated hypertension : Lisinopril Noncompliance , patient does not see any doctors and not taking any medications at home Morbid obesity Date of Service: Aug 04, 2025 Billing Provider: SILAS GIBBONS MD Common Visit Codes: 84576-KYS/OBS DISCH DAY >30min SILAS GIBBONS MD Aug 04, 2025 09:18
[2025-08-04] MEDS ORDERED: LISI20TA56 PO (09:21)
[2025-08-04] MEDS ORDERED: ATOR-507 PO (09:21)
[2025-08-04] MEDS ORDERED: CARV-214 PO (09:21)
[2025-08-04] MEDS ORDERED: ASPI1TAB19 PO (09:21)
[2025-08-04] MEDS ORDERED: FURO1TAB31 PO (09:21)
[2025-08-04] MEDS ORDERED: FUROSEMIDE 20 MG TAB PO SCH (10:00)
[2025-08-04] MEDS ORDERED: FUROSEMIDE 40 MG TAB PO SCH (10:00)
--- NOTE | 2025-08-05 14:12 | DVHSR ---
APPROVED REPORT EXAM: Two-dimensional and M-mode echocardiogram with Doppler and color Doppler. Blood Pressure: 126/99 mmHg INDICATION EF RISK FACTORS Obesity: Height: 6'3", Weight: 362 DIMENSIONS LVDd6.4 (3.8-5.7cm)LA (2D)4.7 (1.9-4.0cm)Aortic Root3.6 (2.0-3.7cm) LVDs5.3 (2.5-4.0cm)LA (MM) (1.9-4.0cm)Aortic Cusp Exc2.0 (1.5-2.0cm) EF (%) 35.0 (55-70%)Rt. Atrium5.4 (1.9-4.0cm)Asc. Aorta3.8 cm IVSd1.1 (0.7-1.1cm)RV (D)4.9 (1.8-2.4cm) PWd1.5 (0.7-1.1cm) Mitral Valve MitralMitral Stenosis E wave1.09m/sMV Mean GR.mmHg E/A ratio0.02D MVAcm2 Aortic Valve Aortic ValveAortic Stenosis V10.64m/Kwan Mean GR.4mmHg V21.18m/Kwan Peak GR.6mmHg LVOT Diameter2.9 (1.8-2.4cm)Doppler AVA3.58cm2 AI P 1/2 [id number] Pulmonic Valve V20.85m/s Tricuspid Valve TR Velocity2.39m/s [id number] Other Information Quality : Technically LimitedRhythm : Technically limited study due to body habitus. Conclusion lvef 20 % dilated LV RV dysfunction left atrium enlarged no severe valve abnormaliteis noted asked to read echo 1 hour ago
== END 2025-08-04 13:00 | disposition home or self-care (01) | DRG 133 ==
LOC: ER 11:52 → OVERFLOW 19:30 → CENTRAL 22:30
PROVIDERS: ADMIT Family Medicine; ATTEND Family Medicine
DX: J96.01 Acute respiratory failure with hypoxia (principal); I50.21 Acute systolic (congestive) heart failure; I11.0 Hypertensive heart disease with heart failure; E66.01 Morbid (severe) obesity due to excess calories; E78.5 Hyperlipidemia, unspecified; Z68.42 Body mass index [BMI] 45.0-49.9, adult; Z83.3 Family history of diabetes mellitus; Z91.199 Patient's noncompliance with other medical treatment and regimen due to unspecified reason
CPT/HCPCS: 36415; 71046; 80048; 80061; 81001; 83036; 83735; 83880; 84443; 84484; 85025; 85610; 85730; 86803; 87081; 87340; 87804; 93005; 93306; 94640; 96374; 96375; 99291; G0378